=== PATIENT | female | born 1940 | race African-American/Black ===

== ENCOUNTER 2019-06-30 20:40 | Inpatient (IN) | payer MEDICARE, SELFPAY ==
--- NOTE | ~2019-06-30 | XR_ITS ---
EXAMINATION: XR abdomen/kub 1V DATE: 07/07/2019 05:46 INDICATION: Barium check TECHNIQUE: A supine view of the abdomen on 2 radiographs was obtained. COMPARISON: 07/06/2019 FINDINGS: There is still a significant quantity of barium distributed throughout the length of the colon. Multi ple diverticula along the sigmoid colon. No dilated loops of gas-filled bowel to suggest obstruction. Calcified splenic granulomata. Phleboliths in the pelvis. Severe lumbar spondylosis. IMPRESSION: 1. Normal bowel gas pattern with minimal change in a still significant quantity of barium remaining t hroughout the colon. Reviewed, dictated and finalized at location A. ET INSPECTOR IMPRESSION: 1. Normal bowel gas pattern with minimal change in a still significant quantity of barium remaining throughout the colon.
--- NOTE | ~2019-06-30 | XR_ITS ---
SMALL BOWEL SERIES ONLY INDICATION: Occult GI bleed. Iron deficiency anemia. TECHNIQUE: Serial plain films and fluoroscopic spot films are performed following oral demonstration of thin barium. COMPARISON: None FINDINGS: There is a large amount of barium in the stomach which remains throughout the course of the examination. There is poor visualization of the small bowel, although there is no significant small bowel dilation. Transit time to the colon is less than 4 hours. IMPRESSION: 1: Limited study due to poor visualization of small bowel. No evidence for small bowel dilation to s uggest obstruction. There is delayed gastric emptying. Reviewed, dictated and finalized at location A. BEAM FITTER IMPRESSION: 1: Limited study due to poor visualization of small bowel. No evidence for sma ll bowel dilation to suggest obstruction. There is delayed gastric emptying.
--- NOTE | ~2019-06-30 | XR_ITS ---
XR abdomen NG/feed tube insert INDICATION: Evaluate NG tube position.] TECHNIQUE: Limited KUB perform for evaluating NG tube .] COMPARISON: 09/12/2006 FINDINGS: [NG tube tip in the distal esophagus above the diaphragm. Visualized bowel gas pattern is unremarkable. IMPRESSION: 1: [NG tube tip in the distal esophagus above the diaphragm. Recommend advancement.. Reviewed, dictated and finalized at location A. ATRIC SOCIAL WORKER IMPRESSION: 1: [NG tube tip in the distal esophagus above the diaphragm. Recommend advance ment..
--- NOTE | ~2019-06-30 | XR_ITS ---
EXAMINATION: XR abdomen/kub 1V DATE: 07/05/2019 10:13 INDICATION: Anemia. TECHNIQUE: A supine view of the abdomen was obtained. COMPARISON: Small bowel series 07/03/2019 FINDINGS: There are no dilated loops of bowel. There is contrast in the colon. There are scattered di verticula in the colon. IMPRESSION: 1. Nonobstructive bowel gas pattern. Reviewed, dictated and finalized at location B. INUING EDUCATION DIRECTOR
--- NOTE | ~2019-06-30 | XR_ITS ---
EXAMINATION: XR abdomen/kub 1V DATE: 07/06/2019 14:15 INDICATION: Anemia. TECHNIQUE: A supine view of the abdomen on 2 radiographs was obtained. COMPARISON: Abdomen radiograph 07/05/2019 FINDINGS: There are no dilated loops of bowel. There is contrast in the colon. There are scattered di verticula in the sigmoid colon. IMPRESSION: 1. Nonobstructive bowel gas pattern. Reviewed, dictated and finalized at location B. MOBILE MECHANIC HELPER
--- NOTE | ~2019-06-30 | CT_ITS ---
EXAMINATION: CT chest wo con DATE: 07/04/2019 12:20 INDICATION: Iron deficiency anemia TECHNIQUE: Computed tomography (CT) of the chest was performed without intravenous contrast. The dose -length product was 191.47 mGy-cm. Automated exposure control and iterative reconstruction technique were employed. COMPARISON: Chest x-ray dated 08/26/2011 FINDINGS: There is an enlarged thyroid gland which extends into the superior mediastinum. There are d ensely calcified mediastinal lymph nodes, consistent with chronic granulomatous disease. There is ath erosclerosis of the aorta and coronary arteries. Cardiomegaly. No significant pleural or pericardial effusion. There are calcified granulomas in the spleen. There is bibasilar dependent atelectasis. No endobronchial lesions. No suspicious pulmonary nodules or masses. No focal consolidation to suggest p neumonia. No pneumothorax. There is mild-moderate lower cervical and thoracic spondylosis. There is m ild left carotid atherosclerosis. IMPRESSION: 1. Thyroid goiter. Consider correlation with ultrasound. 2: Bibasilar dependent atelectasis. Reviewed, dictated and finalized at location A. COURSE PATROLLER
--- NOTE | ~2019-06-30 | XR_ITS ---
XR abdomen NG/feed tube recheck INDICATION: Evaluate NG tube position.] TECHNIQUE: Limited KUB perform for evaluating NG tube .] COMPARISON: 07/01/2019 FINDINGS: [NG tube tip in the stomach. Visualized bowel gas pattern is unremarkable. IMPRESSION: 1: [NG tube tip in the stomach. Reviewed, dictated and finalized at location A. NING AND DEVELOPMENT PROFESSIONAL
--- NOTE | 2019-06-30 20:45 | ECG_ITS ---
Measurements Intervals [place] Rate: 116 P: TX: 0 QRS: 13 QRSD: 87 T: -19 QT: 302 QTc: 421 Interpretive Statements SINUS OR ECTOPIC ATRIAL TACHYCARDIA NONSPECIFIC ST & T-WAVE ABNORMALITY- INF/LAT LEADS BASELINE ARTIFACT- I, II, III, AVR, AVL, AVF, V1-V6 ABNORMAL ECG Electronically Signed On 07-01-2019 7:09:17 STAMPING DIE MAKER by Gian Cherry D.O.
[2019-06-30 20:48] VITALS: BP 117/77; PULSE 117; RESP 20; TEMP 37.2; O2SAT 100
--- NOTE | 2019-06-30 20:51 | ED.GENADULT ---
HPI - General Adult General Chief complaint: Unspecified Stated complaint: DIZZY Time Seen by Provider: 06/30/19 20:47 Source: patient, family and RN notes reviewed Mode of arrival: EMS Limitations: no limitations History of Present Illness HPI narrative: Pt is an 79 y/o female who presents to the ED, via EMS from [facility], with c/o dizziness. Time of onset is unknown. Per EMS, EMS was called for an unresponsive episode that lasted for approximately 14 minutes. EMS reports she became alert after a sternal rub. Pt is normally A&O x2 at baseline. Per pt, pt describes her dizziness as the room is spinning. Pt notes that she has had a similar episode of her dizziness in the past. Her dizziness is worsened when she moves her head. Pt denies taking any medications for her dizziness. Per family, pt has not ambulated since 2015. Pt reports a fast heart rate, chest congestion, urinary frequency that began a couple of weeks ago, and lower ABD soreness, but denies nausea, ringing in her ears, and dysuria. MD complaint: Dizziness Onset (ago): unknown Exacerbating factors: movement (of her head) Associated symptoms: other (a fast heart rate, chest congestion, urinary frequency that began a couple of weeks ago, lower ABD soreness) Related Data Home Medications Medication Instructions Recorded Confirmed acetaminophen [Tylenol] 325 mg PO Q4-6H PRN 07/01/19 07/01/19 aspirin [Star Chewable Aspirin] 81 mg PO DAILY 07/01/19 07/01/19 docusate sodium [Colace] 100 mg PO DAILY 07/01/19 07/01/19 donepezil [Aricept] 10 mg PO HS 07/01/19 07/01/19 gabapentin 100 mg PO HS 07/01/19 07/01/19 isosorbide mononitrate 30 mg PO DAILY 07/01/19 07/01/19 pwsvsqbyzfcs-whvq-wgtpe acid 1 tablet PO QAM 07/01/19 07/01/19 [Daily Multivitamin with Iron] ranitidine HCl [Zantac] 150 mg PO HS 07/01/19 07/01/19 sotalol 80 mg PO BID 07/01/19 07/01/19 sulfamethoxazole-trimethoprim 1 tablet PO DAILY 07/01/19 07/01/19 [Bactrim DS] Allergies Allergy/AdvReac Type Severity Reaction Status Date / Time Penicillins Allergy Intermediate Verified 06/08/12 12:11 ciprofloxacin Allergy Verified 06/08/12 12:11 Review of Systems Review of Systems: All systems reviewed & are unremarkable except as noted in HPI and below ENT: Reports other (ringing in her ears) Cardiovascular: Cardiovascular: Reports rapid heart rate Respiratory: Respiratory: Reports chest congestion Gastrointestinal: Gastrointestinal: Reports abdominal pain (lower, soreness) and Denies nausea Genitourinary: Genitourinary: Reports frequent urination (that began a couple of weeks ago) and Denies dysuria Neurologic: Reports dizziness PMF Past Medical History Medical History A-fib (Acute) Angina at rest (Acute) Anxiety (Acute) Arthritis (Acute) Cataracts, bilateral (Acute) Dementia (Acute) Depression (Acute) Diabetes (Acute) Diverticulosis (Acute) Endometriosis (Acute) Esophageal stricture (Acute) Falls (Acute) Fibroids (Acute) GERD (gastroesophageal reflux disease) (Acute) HTN (hypertension) (Acute) Hyperlipidemia (Acute) Infertility (Acute) Irregular heart beat (Acute) Mitral valve prolapse (Acute) Panic disorder (Acute) Parkinson's disease (Acute) Pneumonia (Acute) Renal disease (Acute) Thyroid lump (Acute) UTI (urinary tract infection) (Acute) Wrist fracture, left (Acute) Surgical History Surgical History History of hysterectomy (Acute) History of nephrectomy (Acute) History of spinal surgery (Acute) History of tubal ligation (Acute) Hx of appendectomy (Acute) Hx of cardiac catheterization (Acute) Hx of tonsillectomy (Acute) Family History Family History (Updated 07/01/19 @ 02:33 by Saba Langford RN) Sibling Hypertension Diabetes mellitus Mother Hypertension Social History Social History (Updated 06/30/19 @ 21:37 by Mayra Pacheco) Smoking status: Never
[2019-06-30 21:19] LABS: Basophils Percent Auto 0.3 % (0.2-1.2); Eosinophils Absolute Auto 0.2 K/mm3 (0-0.3); Eosinophils Percent Auto 1.9 % (0-4.4); Hematocrit 23.3 % (37.0-47.0); Hemoglobin 7.2 g/dL (12.0-15.0); Immature Granulocyte Absolute 0.04 K/mm3 (0.00-0.031); Immature Granulocyte Percent A 0.5 % (0-0.5); Lymphocytes Absolute Auto 1.35 K/mm3 (0.9-3.2); Lymphocytes Percent Auto 15.4 % (18.3-44.2); Mean Corpuscular HGB Conc 30.9 g/dl (32-36); Mean Corpuscular Hemoglobin 26.2 pg (26-34); Mean Corpuscular Volume 84.7 fl (80-100); Mean Platelet Volume 9.6 fl (7.4-10.4); Monocytes Percent Auto 11.4 % (2.6-8.5); Neutrophils Absolute Auto 6.2 K/mm3 (1.3-6.7); Neutrophils Percent Auto 70.5 % (45.5-73.1); Platelet Count Result 344 k/mm3 (150-375); Red Blood Count 2.75 M/mm3 (4.2-5.4); Red Cell Distribution Width 15.1 % (11.5-14.5); White Blood Count 8.8 K/mm3 (4.5-10.0)
[2019-06-30] MEDS: SODIUM CHLORIDE 0.9% IV 1,000 ML 999 ML IV CONT (21:23)
[2019-06-30] MEDS: MECLIZINE HCL 25 MG TABLET PO (21:23)
[2019-06-30 21:29] LABS: Blood Urea Nitrogen 15 mg/dL (7-17); Calcium 8.7 mg/dL (8.4-10.2); Carbon Dioxide 26 mmol/L (22-30); Chloride 106 mmol/L (98-107); Estimated Glomerular Filt Rate 44; Glucose 150 mg/dL (65-105); Sodium 139 mmol/L (137-145)
[2019-06-30 22:11] LABS: Add Urine Microscopic? YES; Appearance Urine Clear (Clear); Bacteria Urine Trace /hpf; Bilirubin Urine Negative (Negative); Blood Urine Negative (Negative); Color Urine Yellow (Yellow); Glucose Urine UA Negative (Negative); Ketones Urine Negative (Negative); Leukocyte Esterase Ur Trace LEU/UL (Negative); Mucus Urine Rare /lpf; Nitrate Urine Positive (Negative); Protein Urine Negative (Negative); RBC Urine 0-2 /hpf (0-2); Specific Grav Ur 1.014 (1.001-1.035); Squamous Epithelial Cell Urine Few /hpf (Few); Urobilinogen Urine Negative mg/dL (<2.0); WBC Urine 0-3
[2019-06-30 23:30] VITALS: BP 131/84; PULSE 115; RESP 15; O2SAT 100
[2019-07-01 01:15] VITALS: BP 144/65; PULSE 119; RESP 15; O2SAT 100
[2019-07-01] MEDS: PANTOPRAZOLE SODIUM IV 40 MG VIAL IV PUSH (01:45)
[2019-07-01 02:03] VITALS: BP 131/52; PULSE 117; RESP 14; O2SAT 100
[2019-07-01 02:15] VITALS: BP 119/95; PULSE 118; RESP 16; O2SAT 98
--- NOTE | 2019-07-01 02:30 | PC.NURSE ---
This patient, Adelaida Knox, was admitted to Medical Room 246-. Patient/family oriented to hospital policies and general routines including ID bracelet, bed and alarms, visiting hours, pain management, procedures, bathroom and other care routines, personal items, smoking policy, room service/diet, and visiting hours. Valuables list has been completed. Information on how to activate the Rapid Response Team has been discussed. Patient/Family are encouraged to report perceived risks to care and to ask questions if they do not understand what they are told or what they should do.
[2019-07-01 03:01] LABS: Hemoglobin 7.6 g/dL (12.0-15.0)
[2019-07-01 06:00] VITALS: BP 138/78; PULSE 77; RESP 20; TEMP 36.3; O2SAT 100; BMI 29.7
[2019-07-01 07:23] LABS: Hematocrit 23.8 % (37.0-47.0); Hemoglobin 7.4 g/dL (12.0-15.0)
[2019-07-01 09:04] LABS: Iron < 10 ug/dL (37-170)
[2019-07-01 09:44] LABS: Percent Iron Saturation < 4 % (20-50)
[2019-07-01 09:59] LABS: Folic Acid 9.3 ng/mL (2.76->20)
[2019-07-01] MEDS: SILVERGEL (ELTA) 45 ML 1 APPLIC TOPICAL (12:27)
--- NOTE | 2019-07-01 12:29 | WPDGICN ---
Assessment and Plan Assessment and plan (1) Anemia due to blood loss: Code(s): D50.0 - Iron deficiency anemia secondary to blood loss (chronic) Status: Acute Assessment and Plan: Decline in hemoglobin and anemia appear to account for mental status changes. GI bleeding is suspected. Occult blood in stool identified in the emergency room. Plan to transfuse to stable hemoglobin. Proceed with GI endoscopy in the morning after preparation today. (2) Occult blood in stools: Code(s): R19.5 - Other fecal abnormalities Status: Acute (3) Dementia: Code(s): F03.90 - Unspecified dementia without behavioral disturbance Status: Acute (4) Diabetes: Code(s): E11.9 - Type 2 diabetes mellitus without complications Status: Acute (5) Parkinson's disease: Code(s): G20 - Parkinson's disease Status: Acute Consult date/time: 07/01/19 12:29 HPI: Adelaida Knox is a 79 year old female seen in evaluation at the request of the emergency room. Patient currently resident of [facility]. She became poorly responsive and for this reason sent to the emergency room. She was found to be significantly anemic with occult blood in stool. Patient is unable to give any additional useful history. She denies any abdominal pain. Her past medical history is significant for Parkinson's disease and dementia old records reflect baseline hemoglobin approximately 11.in the emergency room hemoglobin was 7.4. With heme-positive stool. Review of Systems Review of Systems: ROS unobtainable: unobtainable due to mental condition PMFSH Past Medical History Medical History A-fib (Acute) Angina at rest (Acute) Anxiety (Acute) Arthritis (Acute) Cataracts, bilateral (Acute) Dementia (Acute) Depression (Acute) Diabetes (Acute) Diverticulosis (Acute) Endometriosis (Acute) Esophageal stricture (Acute) Falls (Acute) Fibroids (Acute) GERD (gastroesophageal reflux disease) (Acute) HTN (hypertension) (Acute) Hyperlipidemia (Acute) Infertility (Acute) Irregular heart beat (Acute) Mitral valve prolapse (Acute) Panic disorder (Acute) Parkinson's disease (Acute) Pneumonia (Acute) Renal disease (Acute) Thyroid lump (Acute) UTI (urinary tract infection) (Acute) Wrist fracture, left (Acute) Surgical History Surgical History History of hysterectomy (Acute) History of nephrectomy (Acute) History of spinal surgery (Acute) History of tubal ligation (Acute) Hx of appendectomy (Acute) Hx of cardiac catheterization (Acute) Hx of tonsillectomy (Acute) Family History Family History (Updated 07/01/19 @ 02:33 by Saba Langford RN) Sibling Hypertension Diabetes mellitus Mother Hypertension Social History Social History (Updated 06/30/19 @ 21:37 by Mayra Pacheco) Smoking status: Never smoker Second hand tobacco smoke exposure: No Alcohol intake: never Substance use: never Substance use type: does not use Gender identity (if verbalized by the patient): Female Spiritual care concerns: No Agree to blood products: Yes Meds Home Medications and Allergies Home Medications Medication Instructions Recorded Confirmed Type acetaminophen [Tylenol] 325 mg PO Q4-6H PRN 07/01/19 07/01/19 History aspirin [Star Chewable Aspirin] 81 mg PO DAILY 07/01/19 07/01/19 History docusate sodium [Colace] 100 mg PO DAILY 07/01/19 07/01/19 History donepezil [Aricept] 10 mg PO HS 07/01/19 07/01/19 History gabapentin 100 mg PO HS 07/01/19 07/01/19 History isosorbide mononitrate 30 mg PO DAILY 07/01/19 07/01/19 History sdmfqkcqwtpj-nbso-qtyzh acid 1 tablet PO QAM 07/01/19 07/01/19 History [Daily Multivitamin with Iron] ranitidine HCl [Zantac] 150 mg PO HS 07/01/19 07/01/19 History sotalol 80 mg PO BID 07/01/19 07/01/19 History sulfamethoxazole-trimethoprim 1 tablet PO DAILY 07/01
[2019-07-01] MEDS: PEG (High)/E-LYTE SOLN 4,000 ML BTL 4000 ML PO (12:38)
[2019-07-01 12:58] VITALS: BMI 29.7
--- NOTE | 2019-07-01 13:36 | PM.IMHP ---
H&P: HPI History of Present Illness Chief complaint: OCCULT GI BLEED,ANEMIA,SACRAL DECUBITUS ULCER Narrative: Adelaida Knox is a 79 year old female a resident of [place] was found unresponive and patient had been complaining of being dizzy and room is moving, sent to the ER, patient is poor historian and unable to provide detail history or review of symptoms, patient family is present in the room, patient is found to have anemia and her stool hemmocult is positive, patient was seen by Dr. Olivera and recommended EGD to further evaluate and iron profile showed iron deficiency anemia, started the patient on venofer. Most of the history is recoded from electronic charts. Review of Systems Review of Systems: Narrative: Patient is elderly frail very poor historian unable to provide detailed ROS All systems reviewed & are unremarkable except as noted in HPI and below PMFSH Past Medical History Medical History A-fib (Acute) Angina at rest (Acute) Anxiety (Acute) Arthritis (Acute) Cataracts, bilateral (Acute) Dementia (Acute) Depression (Acute) Diabetes (Acute) Diverticulosis (Acute) Endometriosis (Acute) Esophageal stricture (Acute) Falls (Acute) Fibroids (Acute) GERD (gastroesophageal reflux disease) (Acute) HTN (hypertension) (Acute) Hyperlipidemia (Acute) Infertility (Acute) Irregular heart beat (Acute) Mitral valve prolapse (Acute) Panic disorder (Acute) Parkinson's disease (Acute) Pneumonia (Acute) Renal disease (Acute) Thyroid lump (Acute) UTI (urinary tract infection) (Acute) Wrist fracture, left (Acute) Surgical History Surgical History History of hysterectomy (Acute) History of nephrectomy (Acute) History of spinal surgery (Acute) History of tubal ligation (Acute) Hx of appendectomy (Acute) Hx of cardiac catheterization (Acute) Hx of tonsillectomy (Acute) Family History Family History (Updated 07/01/19 @ 02:33 by Saba Langford RN) Sibling Hypertension Diabetes mellitus Mother Hypertension Social History Social History (Updated 06/30/19 @ 21:37 by Mayra Pacheco) Smoking status: Never smoker Second hand tobacco smoke exposure: No Alcohol intake: never Substance use: never Substance use type: does not use Gender identity (if verbalized by the patient): Female Spiritual care concerns: No Agree to blood products: Yes Meds Home Medications and Allergies Home Medications Medication Instructions Recorded Confirmed Type acetaminophen [Tylenol] 325 mg PO Q4-6H PRN 07/01/19 07/01/19 History aspirin [Star Chewable Aspirin] 81 mg PO DAILY 07/01/19 07/01/19 History docusate sodium [Colace] 100 mg PO DAILY 07/01/19 07/01/19 History donepezil [Aricept] 10 mg PO HS 07/01/19 07/01/19 History gabapentin 100 mg PO HS 07/01/19 07/01/19 History isosorbide mononitrate 30 mg PO DAILY 07/01/19 07/01/19 History hnaunborssoc-figa-fgzrn acid 1 tablet PO QAM 07/01/19 07/01/19 History [Daily Multivitamin with Iron] ranitidine HCl [Zantac] 150 mg PO HS 07/01/19 07/01/19 History sotalol 80 mg PO BID 07/01/19 07/01/19 History sulfamethoxazole-trimethoprim 1 tablet PO DAILY 07/01/19 07/01/19 History [Bactrim DS] Allergies Allergy/AdvReac Type Severity Reaction Status Date / Time Penicillins Allergy Intermediate Verified 06/08/12 12:11 ciprofloxacin Allergy Verified 06/08/12 12:11 Vital Signs Vital Signs - 24 hr 06/30/19 20:48 06/30/19 23:30 07/01/19 01:15 Temperature 98.9 F Pulse Rate 117 H 115 H 119 H Respiratory Rate 20 15 15 Blood Pressure 117/77 131/84 144/65 H Pulse Oximetry 100 100 100 07/01/19 02:03 07/01/19 02:15 07/01/19 06:00 Temperature 97.3 F L Pulse Rate 117 H 118 H 77 Respiratory Rate 14 16 20 Blood Pressure 131/52 L 119/95 H 138/78 Pulse Oximetry 100 98 100 Exam Narrative: Exam Narrative: Patient is elderly frail Const: General: comfort
[2019-07-01 13:58] LABS: Hematocrit 25.2 % (37.0-47.0); Hemoglobin 7.8 g/dL (12.0-15.0)
[2019-07-01 14:00] VITALS: BP 135/79; PULSE 110; RESP 16; TEMP 36.6; O2SAT 94
[2019-07-01 19:45] LABS: Hematocrit 25.3 % (37.0-47.0); Hemoglobin 7.9 g/dL (12.0-15.0)
[2019-07-01 22:00] VITALS: BP 154/90; PULSE 118; RESP 21; TEMP 36.1; O2SAT 100
[2019-07-02] VITALS (10 sets, daily range): BP systolic 99–154; BP diastolic 9–90; PULSE 82–118; RESP 14–21; TEMP 36.1–36.8; O2SAT 95–100
[2019-07-02 06:36] LABS: Hematocrit 29.9 % (37.0-47.0); Hemoglobin 9.2 g/dL (12.0-15.0); Mean Corpuscular HGB Conc 30.8 g/dl (32-36); Mean Corpuscular Hemoglobin 26.1 pg (26-34); Mean Corpuscular Volume 84.9 fl (80-100); Mean Platelet Volume 9.2 fl (7.4-10.4); Platelet Count Result 351 k/mm3 (150-375); Red Blood Count 3.52 M/mm3 (4.2-5.4); Red Cell Distribution Width 14.9 % (11.5-14.5); White Blood Count 9.4 K/mm3 (4.5-10.0)
--- NOTE | 2019-07-02 12:50 | PC.NURSE ---
Patient sent to GI lab via stretcher
[2019-07-02] MEDS: LACTATED RINGERS 1,000 ML 150 ML IV CONT (13:24)
--- NOTE | 2019-07-02 13:47 | WPDANESEPPF ---
Anes - Initial Pre Proc Eval Procedure: Operation Date: 07/02/19 14:00 Proposed Procedures p Esophagogastroduodenoscopy & Colonoscopy - Keith Olivera MD Date/Time: 07/02/19 13:47 Surgeon: Jermaine Lozano MD Pre Op Diagnosis: OCCULT GI BLEED,ANEMIA,SACRAL DECUBITUS ULCER Patient Data Age: 79 Gender: F Height: 5 ft Weight: 69 kg Last Vital Signs Temp 98.1 F 07/02/19 13:18 Pulse 85 07/02/19 13:18 Resp 20 07/02/19 13:18 BP 133/77 07/02/19 13:18 Pulse Ox 99 07/02/19 13:18 Allergies Allergy/AdvReac Type Severity Reaction Status Date / Time Penicillins Allergy Intermediate Verified 06/08/12 12:11 ciprofloxacin Allergy Verified 06/08/12 12:11 Home Medications Medication Instructions Recorded Confirmed Type acetaminophen [Tylenol] 325 mg PO Q4-6H PRN 07/01/19 07/01/19 History aspirin [Star Chewable Aspirin] 81 mg PO DAILY 07/01/19 07/01/19 History docusate sodium [Colace] 100 mg PO DAILY 07/01/19 07/01/19 History donepezil [Aricept] 10 mg PO HS 07/01/19 07/01/19 History gabapentin 100 mg PO HS 07/01/19 07/01/19 History isosorbide mononitrate 30 mg PO DAILY 07/01/19 07/01/19 History vcsjdzdfkbky-eybd-htiyp acid 1 tablet PO QAM 07/01/19 07/01/19 History [Daily Multivitamin with Iron] ranitidine HCl [Zantac] 150 mg PO HS 07/01/19 07/01/19 History sotalol 80 mg PO BID 07/01/19 07/01/19 History sulfamethoxazole-trimethoprim 1 tablet PO DAILY 07/01/19 07/01/19 History [Bactrim DS] Laboratory Tests 07/01/19 07/01/19 07/02/19 13:45 19:35 06:21 WBC 9.4 K/mm3 K/mm3 (4.5-10.0) RBC 3.52 M/mm3 L M/mm3 (4.2-5.4) Hgb 7.8 g/dL L g/dL 7.9 g/dL L g/dL 9.2 g/dL L g/dL (12.0-15.0) (12.0-15.0) (12.0-15.0) Hct 25.2 % L % 25.3 % L % 29.9 % L % (37.0-47.0) (37.0-47.0) (37.0-47.0) MCV 84.9 fl fl (80-100) MCH 26.1 pg pg (26-34) MCHC 30.8 g/dl L g/dl (32-36) RDW 14.9 % H % (11.5-14.5) Plt Count 351 k/mm3 k/mm3 (150-375) MPV 9.2 fl fl (7.4-10.4) Patient hx anesthesia problems: none Family hx anesthesia problems: [facility] Past Medical History Medical History A-fib (Acute) Angina at rest (Acute) Anxiety (Acute) Arthritis (Acute) Cataracts, bilateral (Acute) Dementia (Acute) Depression (Acute) Diabetes (Acute) Diverticulosis (Acute) Endometriosis (Acute) Esophageal stricture (Acute) Falls (Acute) Fibroids (Acute) GERD (gastroesophageal reflux disease) (Acute) HTN (hypertension) (Acute) Hyperlipidemia (Acute) Infertility (Acute) Irregular heart beat (Acute) Mitral valve prolapse (Acute) Panic disorder (Acute) Parkinson's disease (Acute) Pneumonia (Acute) Renal disease (Acute) Thyroid lump (Acute) UTI (urinary tract infection) (Acute) Wrist fracture, left (Acute) Surgical History Surgical History History of hysterectomy (Acute) History of nephrectomy (Acute) History of spinal surgery (Acute) History of tubal ligation (Acute) Hx of appendectomy (Acute) Hx of cardiac catheterization (Acute) Hx of tonsillectomy (Acute) Family History Family History (Updated 07/01/19 @ 02:33 by Saba Langford RN) Sibling Hypertension Diabetes mellitus Mother Hypertension Social History Social History (Updated 06/30/19 @ 21:37 by Mayra Pacheco) Smoking status: Never smoker Second hand tobacco smoke exposure: No Alcohol intake: never Substance use: never Substance use type: does not use Gender identity (if verbalized by the patient): Female Spiritual care concerns: No Agree to blood products: Yes Anes - Eval Final PreProcedure Day of Procedure 07/02/19 13:47 Patient weight: normal Heart: regular rate and rhythm Lungs: clear to auscultation Airway: Mallampati scale class III Neurological: alert and oriented Last oral intake: >/= 8 hours
--- NOTE | 2019-07-02 14:35 | PM.IMPN ---
Progress Note: A&P Assessment and Plan (1) Anemia due to blood loss: Code(s): D50.0 - Iron deficiency anemia secondary to blood loss (chronic) Status: Acute Assessment and Plan: Adelaida Knox is a 79 year old female a resident of [place] was found unresponive and patient had been complaining of being dizzy and room is moving, sent to the ER, patient is poor historian and unable to provide detail history or review of symptoms, patient family is present in the room, patient is found to have anemia and her stool hemmocult is positive, patient was seen by Dr. Olivera on 07/01 and recommended EGD and colonoscopy to further evaluate which is scheduled later today and her iron profile showed iron deficiency anemia, started the patient on venofer. will follow on her scopes and further recommendation to follow (2) Dementia: Code(s): F03.90 - Unspecified dementia without behavioral disturbance Status: Acute Assessment and Plan: Patient is at her baseline, (3) Diabetes: Code(s): E11.9 - Type 2 diabetes mellitus without complications Status: Acute Assessment and Plan: will continue home regiment and monitor (4) Parkinson's disease: Code(s): G20 - Parkinson's disease Status: Acute Assessment and Plan: patient is clinically stable, will monitor (5) Ulcer: Status: Acute Assessment and Plan: pateint wounds were present upon arrival to ER from [place], patient will be seen by wound team Subjective Interval history: Adelaida Knox is a 79 year old female a resident of [place] was found unresponive and patient had been complaining of being dizzy and room is moving, sent to the ER, patient is poor historian and unable to provide detail history or review of symptoms, patient family is present in the room, patient is found to have anemia and her stool hemmocult is positive, patient was seen by Dr. Olivera on 07/01 and recommended EGD and colonoscopy to further evaluate which is scheduled later today and her iron profile showed iron deficiency anemia, started the patient on venofer. will follow on her scopes and further recommendation to follow Review of Systems Review of Systems: All systems reviewed & are unremarkable except as noted in HPI and below Exam Narrative: Exam Narrative: Patient is elderly frail Const: General: comfortable and no acute distress Other: Patient is elderly frail HENMT: General nose exam: nares normal Mouth: Yes moist mucous membranes Other: Patient is elderly frail Eyes: General: appearance normal, both eyes and all related structures Neck: Neck: supple Resp: Effort & Inspection: normal respiratory effort Auscultation: clear to auscultation bilaterally Cardio: Rate: regular rate Rhythm: regular rhythm GI: Palpation (GI): Yes soft Auscultation: normal bowel sounds Extrem: General: normal to inspection Objective Data Vital Signs Vital Signs: Vital Signs - 24 hr 07/01/19 22:00 07/02/19 00:00 07/02/19 06:00 Temperature 97.0 F L 97.0 F L 98.3 F Pulse Rate 118 H 118 H 118 H Respiratory Rate 21 H 21 H 20 Blood Pressure 154/90 H 154/9 H 131/82 Pulse Oximetry 100 100 99 07/02/19 10:00 07/02/19 13:18 Temperature 98.0 F 98.1 F Pulse Rate 115 H 85 Respiratory Rate 16 20 Blood Pressure 129/67 133/77 Pulse Oximetry 98 99 Intake/Output Intake/Output: Intake & Output 06/29/19 06/30/19 07/01/19 07/02/19 23:59 23:59 23:59 23:59 Intake Total 1000 200 115 Balance 1000 200 115 Meds/Results Medications: Active Medications Generic Name Dose Route Start Last Admin Trade Name Freq PRN Reason Stop Dose Admin Acetaminophen 650 mg 07/01/19 01:23 Tylenol Tablet PO Q4H PRN Mild Pain (1-3) or Fever Lactated Ringer's 1,000 mls @ 150 mls/hr 07/02/19 13:05 07/02/19 13:24 Lr - Lactated Ringers Iv IV CONT 150 mls/hr .Q6H40M CASSIE Administration Ondansetron HCl 4 mg 07/01/19 01:23 Zofran
--- NOTE | 2019-07-02 14:42 | PM.IMPN ---
Objective Data Vital Signs Vital Signs: Vital Signs - 24 hr 07/01/19 22:00 07/02/19 00:00 07/02/19 06:00 Temperature 97.0 F L 97.0 F L 98.3 F Pulse Rate 118 H 118 H 118 H Respiratory Rate 21 H 21 H 20 Blood Pressure 154/90 H 154/9 H 131/82 Pulse Oximetry 100 100 99 07/02/19 10:00 07/02/19 13:18 Temperature 98.0 F 98.1 F Pulse Rate 115 H 85 Respiratory Rate 16 20 Blood Pressure 129/67 133/77 Pulse Oximetry 98 99 Intake/Output Intake/Output: Intake & Output 06/29/19 06/30/19 07/01/19 07/02/19 23:59 23:59 23:59 23:59 Intake Total 1000 200 115 Balance 1000 200 115 Meds/Results Medications: Active Medications Generic Name Dose Route Start Last Admin Trade Name Freq PRN Reason Stop Dose Admin Acetaminophen 650 mg 07/01/19 01:23 Tylenol Tablet PO Q4H PRN Mild Pain (1-3) or Fever Lactated Ringer's 1,000 mls @ 150 mls/hr 07/02/19 13:05 07/02/19 13:24 Lr - Lactated Ringers Iv IV CONT 150 mls/hr .Q6H40M CASSIE Administration Ondansetron HCl 4 mg 07/01/19 01:23 Zofran Inj IV PUSH Q4H PRN Nausea Silver Nitrate 1 applic 07/01/19 09:00 07/01/19 12:27 Silvergel TOPICAL 1 applic Q72HR CASSIE Administration Radiology Results: ITS Impressions Abdomen X-Ray 07/01/19 18:35 IMPRESSION: 1: [NG tube tip in the stomach. Labs Labs: Laboratory Results - last 24 hr 07/01/19 07/02/19 19:35 06:21 WBC 9.4 RBC 3.52 L Hgb 7.9 L 9.2 L Hct 25.3 L 29.9 L MCV 84.9 MCH 26.1 MCHC 30.8 L RDW 14.9 H Plt Count 351 MPV 9.2 Quality VTE Prophylaxis VTE prophylaxis: mechanical ordered
[2019-07-02] MEDS: SIMETHICONE ORAL SUSPENSION 20 MG/0.3 ML 30 ML BOTTLE 0.6 ML PO (14:54)
--- NOTE | 2019-07-02 15:06 | SUR.PHASEII ---
PT ALTERNATES BETWEEN A FIB AND NSR WITH HR- 80'S-110 CURRENTLY. A FIB AND NSR NOTED DURING INTEROP ALSO.
--- NOTE | 2019-07-02 15:30 | PC.NURSE ---
Patient returned from GI lab via stretcher with staff.
[2019-07-02] MEDS: SOTALOL HCL 80 MG TABLET PO (21:15)
[2019-07-02] MEDS: GABAPENTIN 100 MG CAPSULE PO (21:15)
[2019-07-02] MEDS: DONEPEZIL HCL 10 MG TABLET PO (21:15)
[2019-07-02] MEDS: FAMOTIDINE 20 MG TABLET PO (21:15)
[2019-07-03] VITALS (9 sets, daily range): BP systolic 109–167; BP diastolic 58–97; PULSE 76–122; RESP 16–18; TEMP 36.1–37.3; O2SAT 97–100
[2019-07-03] MEDS: SILVERGEL (ELTA) 45 ML 1 APPLIC TOPICAL (05:37)
[2019-07-03 06:20] LABS: Hematocrit 26.1 % (37.0-47.0); Hemoglobin 7.9 g/dL (12.0-15.0); Mean Corpuscular HGB Conc 30.3 g/dl (32-36); Mean Corpuscular Hemoglobin 25.3 pg (26-34); Mean Corpuscular Volume 83.7 fl (80-100); Mean Platelet Volume 9.3 fl (7.4-10.4); Platelet Count Result 362 k/mm3 (150-375); Red Blood Count 3.12 M/mm3 (4.2-5.4); Red Cell Distribution Width 14.7 % (11.5-14.5); White Blood Count 8.1 K/mm3 (4.5-10.0)
[2019-07-03] MEDS: ISOSORBIDE MONONITRATE 30 MG TAB.ER.24H PO (08:10)
[2019-07-03] MEDS: ASPIRIN 81 MG CHEWABLE TABLET PO (08:11)
[2019-07-03] MEDS: MULTIVITAMINS /C LUTEIN (CENTRUM SILVER) TABLET *BKC 1 TAB PO (08:11)
[2019-07-03] MEDS: SOTALOL HCL 80 MG TABLET PO ×2 (08:11→20:23)
[2019-07-03] MEDS: DOCUSATE SODIUM 100 MG CAPSULE PO (08:11)
--- NOTE | 2019-07-03 09:29 | WPDGIPROGNO ---
Progress Note: A&P Assessment and Plan (1) Decubitus ulcer: Code(s): L89.90 - Pressure ulcer of unspecified site, unspecified stage Status: Acute Assessment and Plan: possibly this contributes to her anemia (2) Occult blood in stools: Code(s): R19.5 - Other fecal abnormalities Status: Acute Assessment and Plan: gi endoscopy reveals no significant lesions, occult blood in stool could be from hemorrhoids?? (3) Diabetes: Code(s): E11.9 - Type 2 diabetes mellitus without complications Status: Acute (4) Parkinson's disease: Code(s): G20 - Parkinson's disease Status: Acute (5) ELSA (iron deficiency anemia): Code(s): D50.9 - Iron deficiency anemia, unspecified Status: Acute Assessment and Plan: EGD and colonoscopy with no significant lesions, consider non GI etiology for anemia, SBFT to complete gi workup advised Subjective Interval history: no bleeding reported, tolerated diet, hgb stable, unremarkable GI endoscopies to date Exam Narrative: Exam Narrative: pt alert, at baseline, tolerated diet, no bleeding, no abd pain, Objective Data Vital Signs Vital Signs: Vital Signs - 24 hr 07/02/19 10:00 07/02/19 13:18 07/02/19 14:00 Temperature 36.7 C 36.7 C 36.7 C Pulse Rate 115 H 85 82 Respiratory Rate 16 20 14 Blood Pressure 129/67 133/77 128/73 Pulse Oximetry 98 99 100 07/02/19 14:55 07/02/19 15:05 07/02/19 15:15 Temperature Pulse Rate 90 90 118 H Respiratory Rate 14 14 14 Blood Pressure 101/66 113/62 99/73 L Pulse Oximetry 100 100 95 07/02/19 18:00 07/02/19 22:00 07/03/19 02:00 Temperature 36.6 C 36.4 C 36.2 C L Pulse Rate 118 H 118 H 114 H Respiratory Rate 14 18 16 Blood Pressure 132/76 139/90 145/89 H Pulse Oximetry 99 99 97 07/03/19 06:00 Temperature 37.3 C Pulse Rate 84 Respiratory Rate 18 Blood Pressure 167/97 H Pulse Oximetry 98 Intake/Output Intake/Output: Intake & Output 11/13/19 11/14/19 11/15/19 11/16/19 23:59 23:59 23:59 23:59 Intake Total 1000 200 515 Balance 1000 200 515 Meds/Results Medications: Active Medications Generic Name Dose Route Start Last Admin Trade Name Rafael PRN Reason Stop Dose Admin Acetaminophen 650 mg 07/01/19 01:23 Tylenol Tablet PO Q4H PRN Mild Pain (1-3) or Fever Aspirin 81 mg 07/03/19 09:00 07/03/19 08:11 Aspirin Chewable PO 81 mg DAILY CASSIE Administration Docusate Sodium 100 mg 07/03/19 09:00 07/03/19 08:11 Colace Cap PO 100 mg DAILY CASSIE Administration Donepezil HCl 10 mg 07/02/19 21:00 07/02/19 21:15 Aricept PO 10 mg HS CASSIE Administration Famotidine 20 mg 07/02/19 21:00 07/02/19 21:15 Pepcid PO 08/01/19 21:01 20 mg HS CASSIE Administration Gabapentin 100 mg 07/02/19 21:00 07/02/19 21:15 Neurontin PO 100 mg HS CASSIE Administration Isosorbide Mononitrate 30 mg 07/03/19 09:00 07/03/19 08:10 Imdur PO 30 mg DAILY CASSIE Administration Multivitamins/Minerals 1 tab 07/03/19 09:00 07/03/19 08:11 Centrum Silver PO 1 tab QAM CASSIE Administration Ondansetron HCl 4 mg 07/01/19 01:23 Zofran Inj IV PUSH Q4H PRN Nausea Silver Nitrate 1 applic 07/01/19 09:00 07/03/19 05:37 Silvergel TOPICAL 1 applic Q72HR CASSIE Administration Simethicone 0.6 ml 07/02/19 14:54 07/02/19 14:54 Mylicon Infants Drops PO 0.6 ml ONCE PRN Administration Gas Discomfort Sotalol HCl 80 mg 07/02/19 21:00 07/03/19 08:11 Betapace PO 80 mg Q12HR CASSIE Administration Trimethoprim/Sulfamethoxazole 1 tab 07/03/19 09:00 07/03/19 08:11 Septra Ds PO 1 tab DAILY CASSIE Administration Radiology Results: ITS Impressions Abdomen X-Ray 07/01/19 18:35 IMPRESSION: 1: [NG tube tip in the stomach. Labs Labs: Laboratory Results - last 24 hr 07/03/19 05:51 WBC 8.1 RBC 3.12 L Hgb 7.9 L Hct 26.1 L MCV
--- NOTE | 2019-07-03 11:17 | PM.IMPN ---
Progress Note: A&P Assessment and Plan (1) Anemia due to blood loss: Code(s): D50.0 - Iron deficiency anemia secondary to blood loss (chronic) Status: Acute Assessment and Plan: Adelaida Knox is a 79 year old female a resident of [place] was found unresponsive and patient had been complaining of being dizzy and room is moving, sent to the ER, patient is poor historian and unable to provide detail history or review of symptoms, patient family is present in the room, patient is found to have anemia and her stool hemmocult is positive, patient was seen by Dr. Olivera on 07/01,per previous notes, in patient EGD and colonscopy are both negative, SBFT advised as per GI for further investigation of iron deficiency anemia. pt treated with venofer during admission, hb improved to 7.i will order CT abdo and pelvis for saumya and SBFT soon. (2) Dementia: Code(s): F03.90 - Unspecified dementia without behavioral disturbance Status: Acute Assessment and Plan: Patient is at her baseline, poor historian (3) Diabetes: Code(s): E11.9 - Type 2 diabetes mellitus without complications Status: Acute Assessment and Plan: Will continue home regiment and monitor, started on diet, AC and HS (4) Parkinson's disease: Code(s): G20 - Parkinson's disease Status: Acute Assessment and Plan: Patient is clinically stable, will monitor (5) Ulcer: Status: Acute Assessment and Plan: Patient wounds were present upon arrival to ER from [place], patient will be seen by wound team, wound on tail bone Subjective Interval history: Adelaida Knox is a 79 year old female a resident of [place] was found unresponive and patient had been complaining of being dizzy and room is moving, sent to the ER, patient is poor historian and unable to provide detail history or review of symptoms, patient family is present in the room, patient is found to have anemia and her stool hemmocult is positive, patient was seen by Dr. Olivera on 07/01,per previous notes, in patient EGD and colonscopy are both negative, SBFT advised as per GI for further investigation of iron deficiency anemia. pt treated with venofer during admission, hb improved to 7. Review of Systems Review of Systems: All systems reviewed & are unremarkable except as noted in HPI and below Exam Narrative: Exam Narrative: Patient is elderly frail, poor historian, history of dementia Const: General: comfortable and no acute distress Other: Patient is elderly frail HENMT: General nose exam: nares normal Mouth: Yes moist mucous membranes Other: Patient is elderly frail Eyes: General: appearance normal, both eyes and all related structures Neck: Neck: supple Resp: Effort & Inspection: normal respiratory effort Auscultation: clear to auscultation bilaterally Cardio: Rate: regular rate Rhythm: regular rhythm GI: Palpation (GI): Yes soft Auscultation: normal bowel sounds Extrem: General: normal to inspection Objective Data Vital Signs Vital Signs: Vital Signs - 24 hr 07/02/19 13:18 07/02/19 14:00 07/02/19 14:55 Temperature 36.7 C 36.7 C Pulse Rate 85 82 90 Respiratory Rate 20 14 14 Blood Pressure 133/77 128/73 101/66 Pulse Oximetry 99 100 100 07/02/19 15:05 07/02/19 15:15 07/02/19 18:00 Temperature 36.6 C Pulse Rate 90 118 H 118 H Respiratory Rate 14 14 14 Blood Pressure 113/62 99/73 L 132/76 Pulse Oximetry 100 95 99 07/02/19 22:00 07/03/19 02:00 07/03/19 06:00 Temperature 36.4 C 36.2 C L 37.3 C Pulse Rate 118 H 114 H 84 Respiratory Rate 18 16 18 Blood Pressure 139/90 145/89 H 167/97 H Pulse Oximetry 99 97 98 Intake/Output Intake/Output: Intake & Output 06/30/19 07/01/19 07/02/19 07/03/19 23:59 23:59 23:59 23:59 Intake Total 1000 200 515 240 Balance 1000 200 515 240 Meds/Results Medications: Active Medications Generic Name Dose Route Start Last Admin Trade Name Freq PRN Reason Stop Dose A
[2019-07-03 14:23] LABS: Estimated CRCL calculation 25 ml/min; Estimated Glomerular Filt Rate 44
[2019-07-03] MEDS: DONEPEZIL HCL 10 MG TABLET PO (20:23)
[2019-07-03] MEDS: FAMOTIDINE 20 MG TABLET PO (20:23)
[2019-07-03] MEDS: GABAPENTIN 100 MG CAPSULE PO (20:23)
[2019-07-04] MEDS: ACETAMINOPHEN 325 MG TABLET 650 MG PO (04:38)
[2019-07-04 06:00] VITALS: BP 115/82; PULSE 121; RESP 18; TEMP 36.1; O2SAT 97
[2019-07-04 06:13] LABS: Hemoglobin 7.4 g/dL (12.0-15.0); Mean Corpuscular HGB Conc 30.8 g/dl (32-36); Mean Corpuscular Hemoglobin 25.6 pg (26-34); Mean Platelet Volume 8.9 fl (7.4-10.4); Platelet Count Result 326 k/mm3 (150-375); Red Blood Count 2.89 M/mm3 (4.2-5.4); White Blood Count 8.3 K/mm3 (4.5-10.0)
[2019-07-04 08:00] VITALS: BP 112/58; PULSE 90
[2019-07-04] MEDS: DOCUSATE SODIUM 100 MG CAPSULE PO (08:07)
[2019-07-04] MEDS: ASPIRIN 81 MG CHEWABLE TABLET PO (08:07)
[2019-07-04] MEDS: ISOSORBIDE MONONITRATE 30 MG TAB.ER.24H PO (08:07)
[2019-07-04] MEDS: SOTALOL HCL 80 MG TABLET PO ×2 (08:07→20:36)
[2019-07-04] MEDS: MULTIVITAMINS /C LUTEIN (CENTRUM SILVER) TABLET *BKC 1 TAB PO (08:07)
--- NOTE | 2019-07-04 08:58 | WPDGIPROGNO ---
Progress Note: A&P Assessment and Plan (1) ELSA (iron deficiency anemia): Code(s): D50.9 - Iron deficiency anemia, unspecified Status: Acute Assessment and Plan: gi evaluation essentially unremarkable, no obvious GI etiology for anemia, suspect non-GI etiology for anemia, consider decubitus ulcer as etiology iron replacement to continue follow hct after discharge (2) Decubitus ulcer: Code(s): L89.90 - Pressure ulcer of unspecified site, unspecified stage Status: Acute (3) Parkinson's disease: Code(s): G20 - Parkinson's disease Status: Acute Subjective Interval history: pt unchanged, no gi bleeding appreciaterd Exam Narrative: Exam Narrative: alert, bedridden, abdomen soft and nontender, decubitus ulcer persists SBFT negative Objective Data Vital Signs Vital Signs: Vital Signs - 24 hr 07/03/19 10:00 07/03/19 14:00 07/03/19 18:00 Temperature 36.1 C L 37.1 C 36.9 C Pulse Rate 88 112 H 122 H Respiratory Rate 18 16 16 Blood Pressure 140/77 126/72 122/78 Pulse Oximetry 100 100 100 07/03/19 20:23 07/03/19 22:00 07/03/19 22:50 Temperature 36.5 C Pulse Rate 122 H 86 86 Respiratory Rate 18 18 Blood Pressure 109/58 L Pulse Oximetry 99 99 07/04/19 06:00 Temperature 36.1 C L Pulse Rate 121 H Respiratory Rate 18 Blood Pressure 115/82 Pulse Oximetry 97 Intake/Output Intake/Output: Intake & Output 07/01/19 07/02/19 07/03/19 07/04/19 23:59 23:59 23:59 23:59 Intake Total 200 515 790 Balance 200 515 790 Meds/Results Medications: Active Medications Generic Name Dose Route Start Last Admin Trade Name Freq PRN Reason Stop Dose Admin Acetaminophen 650 mg 07/01/19 01:23 07/04/19 04:38 Tylenol Tablet PO 650 mg Q4H PRN Administration Mild Pain (1-3) or Fever Aspirin 81 mg 07/03/19 09:00 07/04/19 08:07 Aspirin Chewable PO 81 mg DAILY CASSIE Administration Docusate Sodium 100 mg 07/03/19 09:00 07/04/19 08:07 Colace Cap PO 100 mg DAILY CASSIE Administration Donepezil HCl 10 mg 07/02/19 21:00 07/03/19 20:23 Aricept PO 10 mg HS CASSIE Administration Famotidine 20 mg 07/02/19 21:00 07/03/19 20:23 Pepcid PO 08/01/19 21:01 20 mg HS CASSIE Administration Gabapentin 100 mg 07/02/19 21:00 07/03/19 20:23 Neurontin PO 100 mg HS CASSIE Administration Isosorbide Mononitrate 30 mg 07/03/19 09:00 07/04/19 08:07 Imdur PO 30 mg DAILY CASSIE Administration Multivitamins/Minerals 1 tab 07/03/19 09:00 07/04/19 08:07 Centrum Silver PO 1 tab QAM CASSIE Administration Ondansetron HCl 4 mg 07/01/19 01:23 Zofran Inj IV PUSH Q4H PRN Nausea Silver Nitrate 1 applic 07/01/19 09:00 07/03/19 05:37 Silvergel TOPICAL 1 applic Q72HR CASSIE Administration Simethicone 0.6 ml 07/02/19 14:54 07/02/19 14:54 Mylicon Infants Drops PO 0.6 ml ONCE PRN Administration Gas Discomfort Sotalol HCl 80 mg 07/02/19 21:00 07/04/19 08:07 Betapace PO 80 mg Q12HR CASSIE Administration Trimethoprim/Sulfamethoxazole 1 tab 07/03/19 09:00 07/04/19 08:07 Septra Ds PO 1 tab DAILY CASSIE Administration Radiology Results: ITS Impressions Abdomen X-Ray 07/01/19 18:35 IMPRESSION: 1: [NG tube tip in the stomach. Upper GI and Small Bowel X-Ray 07/03/19 16:30 IMPRESSION: 1: Limited study due to poor visualization of small bowel. No evidence for small bowel dilation to suggest obstruction. There is delayed gastric emptying. Labs Labs: Laboratory Results - last 24 hr 07/03/19 07/04/19 13:36 06:03 WBC 8.3 RBC 2.89 L Hgb 7.4 L Hct 24.0 L MCV 83.0 MCH 25.6 L MCHC 30.8 L RDW 15.0 H Plt Count 326 MPV 8.9 Creatinine 1.40 H Estim Creat Clear Calc 25 Estimated GFR 44 L
[2019-07-04 09:11] VITALS: BP 109/68; PULSE 118; RESP 14; TEMP 36.7; O2SAT 100
--- NOTE | 2019-07-04 11:53 | PM.IMPN ---
Progress Note: A&P Assessment and Plan (1) Anemia due to blood loss: Code(s): D50.0 - Iron deficiency anemia secondary to blood loss (chronic) Status: Acute Assessment and Plan: Adelaida Knox is a 79 year old female a resident of [place] was found unresponsive and patient had been complaining of being dizzy and room is moving, sent to the ER, patient is poor historian and unable to provide detail history or review of symptoms, patient family is present in the room, patient is found to have anemia and her stool hemmocult is positive, patient was seen by Dr. Olivera on 07/01, taken from previous notes. pt is having ongoing iron deficiency anaemia, I will order ct chest in the hospital and ct abdo hopeful saumya once barium is out. Tests done here egd, colonscopy and sbft have been negative. Anaemia is not related to GI tract. (2) Dementia: Code(s): F03.90 - Unspecified dementia without behavioral disturbance Status: Acute Assessment and Plan: Patient is at her baseline, poor historian (3) Diabetes: Code(s): E11.9 - Type 2 diabetes mellitus without complications Status: Acute Assessment and Plan: Will continue home regiment and monitor, started on diet, AC and HS (4) Parkinson's disease: Code(s): G20 - Parkinson's disease Status: Acute Assessment and Plan: Patient is clinically stable, will monitor (5) Ulcer: Status: Acute Assessment and Plan: Patient wounds were present upon arrival to ER from [place], patient will be seen by wound team, wound on tail bone Subjective Interval history: Pt unchanged, history from nephew by bedside. No gi bleeding, pt has dementia poor historian, ongoing iron deficiency anaemia, I will order ct chest in the hospital and ct abdo hopeful saumya once barium is out. Tests done here egd, colonscopy and sbft have been negative. Anaemia is not related to GI tract. Review of Systems Review of Systems: All systems reviewed & are unremarkable except as noted in HPI and below Constitutional: Comments: Pt has dementia, poor historian Exam Narrative: Exam Narrative: Patient is elderly frail Const: General: comfortable and no acute distress Other: Patient is elderly frail Resp: Effort & Inspection: normal respiratory effort Auscultation: clear to auscultation bilaterally Cardio: Rate: regular rate Rhythm: regular rhythm GI: Palpation (GI): Yes soft Auscultation: normal bowel sounds Extrem: General: normal to inspection Objective Data Vital Signs Vital Signs: Vital Signs - 24 hr 07/03/19 14:00 07/03/19 18:00 07/03/19 20:23 Temperature 37.1 C 36.9 C Pulse Rate 112 H 122 H 122 H Respiratory Rate 16 16 Blood Pressure 126/72 122/78 Pulse Oximetry 100 100 07/03/19 22:00 07/03/19 22:50 07/04/19 06:00 Temperature 36.5 C 36.1 C L Pulse Rate 86 86 121 H Respiratory Rate 18 18 18 Blood Pressure 109/58 L 115/82 Pulse Oximetry 99 99 97 07/04/19 08:00 07/04/19 09:11 Temperature 36.7 C Pulse Rate 90 118 H Respiratory Rate 14 Blood Pressure 112/58 L 109/68 Pulse Oximetry 100 Intake/Output Intake/Output: Intake & Output 07/01/19 07/02/19 07/03/19 07/04/19 23:59 23:59 23:59 23:59 Intake Total 200 515 790 360 Balance 200 515 790 360 Meds/Results Medications: Active Medications Generic Name Dose Route Start Last Admin Trade Name Freq PRN Reason Stop Dose Admin Acetaminophen 650 mg 07/01/19 01:23 07/04/19 04:38 Tylenol Tablet PO 650 mg Q4H PRN Administration Mild Pain (1-3) or Fever Aspirin 81 mg 07/03/19 09:00 07/04/19 08:07 Aspirin Chewable PO 81 mg DAILY CASSIE Administration Docusate Sodium 100 mg 07/03/19 09:00 07/04/19 08:07 Colace Cap PO 100 mg DAILY CASSIE Administration Donepezil HCl 10 mg 07/02/19 21:00 07/03/19 20:23 Aricept PO 10 mg HS CASSIE Administration Famotidine 20 mg 07/02/19 21:00 07/03/19 20:23 Pepcid PO 07/18
[2019-07-04 12:38] VITALS: BP 121/76; PULSE 116; RESP 16; TEMP 37; O2SAT 98
[2019-07-04 15:15] VITALS: BP 110/67; PULSE 98; RESP 14; TEMP 37; O2SAT 99
[2019-07-04] MEDS: GABAPENTIN 100 MG CAPSULE PO (20:36)
[2019-07-04] MEDS: FAMOTIDINE 20 MG TABLET PO (20:36)
[2019-07-04] MEDS: DONEPEZIL HCL 10 MG TABLET PO (20:36)
[2019-07-04 22:00] VITALS: BP 92/52; PULSE 118; RESP 14; TEMP 36.8; O2SAT 98
[2019-07-05] VITALS (13 sets, daily range): BP systolic 93–114; BP diastolic 57–73; PULSE 80–119; RESP 16–18; TEMP 35.9–36.5; O2SAT 97–100
[2019-07-05 07:27] LABS: Hematocrit 22.5 % (37.0-47.0); Mean Corpuscular HGB Conc 30.7 g/dl (32-36); Mean Corpuscular Hemoglobin 25.6 pg (26-34); Mean Corpuscular Volume 83.3 fl (80-100); Mean Platelet Volume 9.2 fl (7.4-10.4); Platelet Count Result 319 k/mm3 (150-375); Red Cell Distribution Width 15.3 % (11.5-14.5); White Blood Count 8.3 K/mm3 (4.5-10.0)
[2019-07-05 07:30] LABS: Hemoglobin 6.9 g/dL (12.0-15.0)
[2019-07-05 07:48] LABS: Blood Urea Nitrogen 13 mg/dL (7-17); Calcium 8.4 mg/dL (8.4-10.2); Carbon Dioxide 26 mmol/L (22-30); Chloride 111 mmol/L (98-107); Estimated CRCL calculation 23 ml/min; Estimated Glomerular Filt Rate 40; Glucose 108 mg/dL (65-105); Potassium 3.6 mmol/L (3.4-5.0); Sodium 142 mmol/L (137-145)
[2019-07-05] MEDS: SOTALOL HCL 80 MG TABLET PO ×2 (10:54→21:00)
[2019-07-05] MEDS: MULTIVITAMINS /C LUTEIN (CENTRUM SILVER) TABLET *BKC 1 TAB PO (10:54)
[2019-07-05] MEDS: DOCUSATE SODIUM 100 MG CAPSULE PO (10:55)
[2019-07-05] MEDS: ISOSORBIDE MONONITRATE 30 MG TAB.ER.24H PO (10:55)
[2019-07-05] MEDS: ASPIRIN 81 MG CHEWABLE TABLET PO (10:55)
[2019-07-05] MEDS: SODIUM CHLORIDE 0.9% IV 250 ML 30 ML IV CONT (15:04)
--- NOTE | 2019-07-05 17:42 | PHAR ---
pt info sheet sent with 1st epo dose
--- NOTE | 2019-07-05 20:31 | PM.IMPN ---
Progress Note: A&P Assessment and Plan (1) Anemia due to blood loss: Code(s): D50.0 - Iron deficiency anemia secondary to blood loss (chronic) Status: Acute Assessment and Plan: Adelaida Knox is a 79 year old female a resident of [place] was found unresponsive and patient had been complaining of being dizzy and room is moving, sent to the ER, patient is poor historian and unable to provide detail history or review of symptoms, patient family is present in the room, patient is found to have anemia and her stool hemmocult is positive, patient was seen by Dr. Olivera on 07/01, taken from previous notes. pt is having ongoing iron deficiency anaemia, I will order ct chest in the hospital and ct abdo hopeful saumya once barium is out. Tests done here egd, colonscopy and sbft have been negative. Anaemia is not related to GI trac plan was to order ct chest in the hospital and ct abdo however KUB showed barium still in the intestine, Tests done here egd, colonscopy and sbft have been negative. Anaemia is not related to GI tract. patient was seen by Dr. Hodge and ordered epogen and B12, (2) Dementia: Code(s): F03.90 - Unspecified dementia without behavioral disturbance Status: Acute Assessment and Plan: Patient is at her baseline, poor historian (3) Diabetes: Code(s): E11.9 - Type 2 diabetes mellitus without complications Status: Acute Assessment and Plan: Will continue home regiment and monitor, started on diet, AC and HS (4) Parkinson's disease: Code(s): G20 - Parkinson's disease Status: Acute Assessment and Plan: Patient is clinically stable, will monitor (5) Ulcer: Status: Acute Assessment and Plan: Patient wounds were present upon arrival to ER from [place], patient will be seen by wound team, wound on tail bone Subjective Interval history: Adelaida Knox is a 79 year old female a resident of [place] was found unresponsive and patient had been complaining of being dizzy and room is moving, sent to the ER, patient is poor historian and unable to provide detail history or review of symptoms, patient family is present in the room, patient is found to have anemia and her stool hemmocult is positive, patient was seen by Dr. Olivera on 07/01, taken from previous notes. pt is having ongoing iron deficiency anaemia, I will order ct chest in the hospital and ct abdo hopeful saumya once barium is out. Tests done here egd, colonscopy and sbft have been negative. Anaemia is not related to GI trac plan was to order ct chest in the hospital and ct abdo however KUB showed barium still in the intestine, Tests done here egd, colonscopy and sbft have been negative. Anaemia is not related to GI tract. patient was seen by Dr. Hodge and ordered epogen and B12, Review of Systems Review of Systems: All systems reviewed & are unremarkable except as noted in HPI and below Exam Narrative: Exam Narrative: Patient is elderly frail Const: General: comfortable and no acute distress Other: Patient is elderly frail HENMT: General nose exam: nares normal Mouth: Yes moist mucous membranes Other: Patient is elderly frail Eyes: General: appearance normal, both eyes and all related structures Neck: Neck: supple Resp: Effort & Inspection: normal respiratory effort Auscultation: clear to auscultation bilaterally Cardio: Rate: regular rate Rhythm: regular rhythm GI: Palpation (GI): Yes soft Auscultation: normal bowel sounds Extrem: General: normal to inspection Objective Data Vital Signs Vital Signs: Vital Signs - 24 hr 07/04/19 22:00 07/05/19 02:58 07/05/19 06:00 Temperature 98.2 F 97.4 F L 97.7 F Pulse Rate 118 H 113 H 110 H Respiratory Rate 14 16 16 Blood Pressure 92/52 L 114/59 L 95/62 L Pulse Oximetry 98 97 98 07/05/19 08:00 07/05/19 10:00 07/05/19 10:54 Temperature 97.3 F L Pulse Rate 103 H 115 H 92 Respiratory Rate 16 18 Blood Pressure 114/69 Pulse Oxi
[2019-07-05] MEDS: CYANOCOBALAMIN INJ 1,000 MCG/ML VIAL 1000 MCG IM (20:59)
[2019-07-05] MEDS: EPOETIN ALFA 20,000 UNITS/ML VIAL 20000 UNITS SUB-Q (20:59)
[2019-07-05] MEDS: GABAPENTIN 100 MG CAPSULE PO (21:00)
[2019-07-05] MEDS: DONEPEZIL HCL 10 MG TABLET PO (21:00)
[2019-07-05] MEDS: FAMOTIDINE 20 MG TABLET PO (21:00)
--- NOTE | 2019-07-05 23:34 | CONS_ITS ---
DATE OF CONSULTATION: 07/05/2019 REASON FOR CONSULTATION: Anemia. HISTORY OF PRESENTING ILLNESS: This is an 79-year-old [place] resident with history of Parkinson disease, brought into the hospital as she was found unresponsive and later she started complaining of dizziness and lightheadedness. She is a poor historian. She complained of tiredness and fatigue. She also complained of blood in the stool. Her Hemoccult stools were positive. She had a complete GI evaluation done by Dr. Olivera including EGD, colonoscopy, and a small-bowel follow-through came back unremarkable other than polyps and hemorrhoids. No GI etiology of her anemia was found. She has been eating well and denies any weight loss. REVIEW OF SYSTEMS: A 12-point review of system was reviewed and as per HPI, otherwise negative. PAST MEDICAL HISTORY: Atrial fibrillation, diabetes, depression, diverticulosis, endometriosis, esophageal stricture, GERD, hypertension, hyperlipidemia, mitral valve prolapse, Parkinson disease, chronic kidney disease, thyroid, and UTI. PAST SURGICAL HISTORY: Hysterectomy, nephrectomy, spinal surgery, tubal ligation, appendectomy, cardiac catheterization, and tonsillectomy. HOME MEDICATIONS: Reviewed. ALLERGIES: REVIEWED. FAMILY HISTORY: Positive for diabetes in siblings. SOCIAL HISTORY: The patient is a lifelong nonsmoker. Denies any alcohol use. The patient is a [place] resident. PHYSICAL EXAMINATION: GENERAL: This patient is an elderly female, who looks quite tired and fatigued. VITAL SIGNS: Per nursing note. HEENT: Normocephalic, atraumatic. Clear oropharynx. LUNGS: Clear to auscultation bilaterally. CARDIOVASCULAR: Regular rate and rhythm. No murmurs. ABDOMEN: Soft, nontender, nondistended. Bowel sounds are positive. No hepatosplenomegaly. EXTREMITIES: Mild edema. NEUROLOGIC: Grossly intact. LABORATORY DATA: Creatinine 1.5 with creatinine clearance of 23%. Iron less than 10. Iron saturation less than 4%, TIBC 233, ferritin 18.5, vitamin B12 of 497. WBC 8.3, hemoglobin 6.9, MCV 83.3, platelet count 319,000, neutrophils 70%, and lymphocytes 15.4%. ASSESSMENT AND PLAN: Normocytic anemia in an 79-year-old female with history of Parkinson disease and multiple other comorbidities. She had an extensive GI evaluation done including colonoscopy that showed hemorrhoids, colon polyps, and diverticulosis. She also had EGD and small bowel series done that came back unremarkable for any source of gastrointestinal bleed. Her anemia is likely multifactorial with anemia of chronic kidney disease with poor kidney function as well as possibility of bone marrow disorder like myelodysplastic syndrome. There is still a possibility of occult gastrointestinal bleed with iron deficiency. Her vitamin B12 level is also in the middle range of normal. At this point, I will start her on Procrit injection 20,000 units on a biweekly basis along with vitamin B12 replacement. The patient has already received iron infusion with Venofer. She may need a bone marrow biopsy for completion of workup, but she seems like not a good candidate for bone marrow biopsy at this point. In the meantime, I will continue with the above plan and continue with blood transfusion as needed. We will consider doing a bone marrow biopsy once she is more stable. I have answered all the questions to the patient's satisfaction. D I MT: Kale
[2019-07-06] VITALS (10 sets, daily range): BP systolic 91–134; BP diastolic 59–75; PULSE 75–116; RESP 14–20; TEMP 35.9–36.8; O2SAT 89–100
[2019-07-06 07:08] LABS: Hematocrit 26.5 % (37.0-47.0); Hemoglobin 8.3 g/dL (12.0-15.0); Mean Corpuscular HGB Conc 31.3 g/dl (32-36); Mean Corpuscular Volume 86.3 fl (80-100); Mean Platelet Volume 9.3 fl (7.4-10.4); Platelet Count Result 311 k/mm3 (150-375); Red Blood Count 3.07 M/mm3 (4.2-5.4); Red Cell Distribution Width 15.2 % (11.5-14.5); White Blood Count 7.7 K/mm3 (4.5-10.0)
[2019-07-06 07:20] LABS: Blood Urea Nitrogen 14 mg/dL (7-17); Calcium 8.6 mg/dL (8.4-10.2); Carbon Dioxide 26 mmol/L (22-30); Chloride 112 mmol/L (98-107); Estimated CRCL calculation 23 ml/min; Estimated Glomerular Filt Rate 40; Glucose 95 mg/dL (65-105); Potassium 3.8 mmol/L (3.4-5.0); Sodium 143 mmol/L (137-145)
[2019-07-06] MEDS: DOCUSATE SODIUM 100 MG CAPSULE PO (09:51)
[2019-07-06] MEDS: ASPIRIN 81 MG CHEWABLE TABLET PO (09:51)
[2019-07-06] MEDS: MULTIVITAMINS /C LUTEIN (CENTRUM SILVER) TABLET *BKC 1 TAB PO (09:52)
[2019-07-06] MEDS: ISOSORBIDE MONONITRATE 30 MG TAB.ER.24H PO (09:52)
[2019-07-06] MEDS: SOTALOL HCL 80 MG TABLET PO ×2 (09:52→20:27)
--- NOTE | 2019-07-06 13:34 | PCDIET ---
Nutrition Follow-Up Complete: Inadequate oral intake R/T reduced appetite as evidence by wt loss of 24-33lbs PO intake of meals and supplements at 75% or greater Goal: Progressing towards goal. Continue with current goal. Pt current nutrition is heart healthy. Nutrition recommendation: Agree Last recorded weight is 69 kg. Bowel Motility: 07/05 Labs Reviewed: Hgb 8.3, Hct 26.5 Meds Noted: Colace, MTV Additional Notes: Pt average intake is 63%. Pt appears well nourished. Allen added BID to aid in wound healing of sacral decubitis ulcer. Allen is a low kcal, low CHO beverage that aids in wound healing. It provides 80 kcals, 7.9 CHO, and 7 g of both L-Arginine and L-glutamine per serving. We will continue to monitor po intake, diet, skin, labs every five days.
--- NOTE | 2019-07-06 16:05 | PM.IMPN ---
Progress Note: A&P Assessment and Plan (1) Anemia due to blood loss: Code(s): D50.0 - Iron deficiency anemia secondary to blood loss (chronic) Status: Acute Assessment and Plan: Adelaida Knox is a 79 year old female a resident of [place] was found unresponsive and patient had been complaining of being dizzy and room is moving, sent to the ER, patient is poor historian and unable to provide detail history or review of symptoms, patient family is present in the room, patient is found to have anemia and her stool hemmocult is positive, patient was seen by Dr. Olivera on 07/01, pt is having ongoing iron deficiency anaemia, I will order ct chest in the hospital and ct abdo hopeful saumya once barium is out. Tests done here egd, colonscopy and sbft have been negative. Anaemia is not related to GI trac plan was to order ct chest in the hospital and ct abdo however KUB showed barium still in the intestine, Tests done here egd, colonscopy and sbft have been negative. Anaemia is not related to GI tract. patient was seen by Dr. Hodge and ordered epogen and B12, taken from previous notes.pt hopefully to be discharged tomorrow (2) Dementia: Code(s): F03.90 - Unspecified dementia without behavioral disturbance Status: Acute Assessment and Plan: Patient is at her baseline, poor historian (3) Diabetes: Code(s): E11.9 - Type 2 diabetes mellitus without complications Status: Acute Assessment and Plan: Will continue home regiment and monitor, started on diet, AC and HS (4) Parkinson's disease: Code(s): G20 - Parkinson's disease Status: Acute Assessment and Plan: Patient is clinically stable, will monitor (5) Ulcer: Status: Acute Assessment and Plan: Patient wounds were present upon arrival to ER from [place], patient will be seen by wound team, wound on tail bone Subjective Interval history: Pt unchanged, history from nephew by bedside. 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 Tests done here egd, colonscopy and sbft have been negative. Anaemia is not related to GI tract.Dr Hodge consulted, hopeful dischrage tomorrow Review of Systems Review of Systems: All systems reviewed & are unremarkable except as noted in HPI and below Exam Narrative: Exam Narrative: Patient is elderly frail Const: General: comfortable and no acute distress Other: Patient is elderly frail HENMT: General nose exam: nares normal Mouth: Yes moist mucous membranes Other: Patient is elderly frail Eyes: General: appearance normal, both eyes and all related structures Neck: Neck: supple Resp: Effort & Inspection: normal respiratory effort Auscultation: clear to auscultation bilaterally Cardio: Rate: regular rate Rhythm: regular rhythm GI: Palpation (GI): Yes soft Auscultation: normal bowel sounds Extrem: General: normal to inspection Objective Data Vital Signs Vital Signs: Vital Signs - 24 hr 07/05/19 16:19 07/05/19 17:19 07/05/19 19:30 Temperature 36.0 C L 35.9 C L Pulse Rate 117 H 97 80 Respiratory Rate 16 16 16 Blood Pressure 101/73 96/58 L Pulse Oximetry 100 100 100 07/05/19 21:00 07/05/19 22:00 07/06/19 02:00 Temperature 36.4 C 36.1 C L Pulse Rate 80 91 91 Respiratory Rate 16 20 Blood Pressure 112/70 91/59 L Pulse Oximetry 99 94 L 07/06/19 06:00 07/06/19 08:00 07/06/19 09:52 Temperature 35.9 C L Pulse Rate 105 H 100 100 Respiratory Rate 16 16 Blood Pressure 121/74 Pulse Oximetry 97 97 07/06/19 10:00 07/06/19 14:00 Temperature 36.4 C 36.8 C Pulse Rate 116 H 86 Respiratory Rate 14 16 Blood Pressure 123/71 134/73 Pulse Oximetry 100 100 Intake/Output Intake/Output: Intake & Output 07/03/19 07/04/19 07/05/19 07/06/19 23:59 23:59 23:59 23:59 Intake Total 790 1380 950 700 Balance 790 1380 950
--- NOTE | 2019-07-06 18:21 | WPDONCPN ---
Progress Note: A/P - Additional Plan Multifactorial anemia. Likely secondary to vitamin B12 deficiency and anemia of chronic kidney disease. Patient has started B12 injection and Procrit 52976 units on a biweekly basis. I will follow up in the office in 2 weeks to continue Procrit injection upon discharge. No need for bone marrow biopsy testing at this time. GI evaluation previously was unrevealing. Decubitus ulcer. Wound care nurses have been seeing patient. - Time Spent With Patient Total time spent is greater than 50% in coordination of care (as documented) at patient's floor/unit and/or counseling patient: less than 15 minutes (Time spent 15 minutes.) Subjective Interval history: Multifactorial anemia. Decubitus ulcer Chronic kidney disease Review of Systems - Review of Systems Patient looks much more awake and alert today. Denies any fevers and chills. Denies any bleeding and bruising. Exam Vital signs: Temp Pulse Resp BP Pulse Ox 36.8 C 86 16 134/73 100 07/06/19 14:00 07/06/19 14:00 07/06/19 14:00 07/06/19 14:00 07/06/19 14:00 Narrative: Lungs are clear to auscultation bilaterally Cardiovascular regular rate rhythm no murmurs Abdomen soft nontender nondistended Extremities no edema PN: Objective Data - Labs CBC & Chem 7: 07/06/19 06:32 07/06/19 06:32 Labs: Laboratory Results - last 24 hr 07/05/19 07/06/19 07/06/19 10:04 06:32 06:32 WBC 7.7 RBC 3.07 L Hgb 8.3 L Hct 26.5 L MCV 86.3 MCH 27.0 D MCHC 31.3 L RDW 15.2 H Plt Count 311 MPV 9.3 Sodium 143 Potassium 3.8 Chloride 112 H Carbon Dioxide 26 BUN 14 Creatinine 1.50 H Estim Creat Clear Calc 23 Estimated GFR 40 L Glucose 95 Calcium 8.6 Crossmatch See Detail
[2019-07-06] MEDS: FAMOTIDINE 20 MG TABLET PO (20:27)
[2019-07-06] MEDS: DONEPEZIL HCL 10 MG TABLET PO (20:27)
[2019-07-06] MEDS: GABAPENTIN 100 MG CAPSULE PO (20:27)
[2019-07-07 02:00] VITALS: BP 112/61; PULSE 73; RESP 16; TEMP 36.3; O2SAT 97
[2019-07-07 05:52] VITALS: BP 97/72; PULSE 74; RESP 16; TEMP 36.6; O2SAT 96
[2019-07-07] MEDS: ASPIRIN 81 MG CHEWABLE TABLET PO (09:30)
[2019-07-07] MEDS: SOTALOL HCL 80 MG TABLET PO (09:30)
[2019-07-07] MEDS: MULTIVITAMINS /C LUTEIN (CENTRUM SILVER) TABLET *BKC 1 TAB PO (09:30)
[2019-07-07] MEDS: DOCUSATE SODIUM 100 MG CAPSULE PO (09:30)
[2019-07-07] MEDS: ISOSORBIDE MONONITRATE 30 MG TAB.ER.24H PO (09:30)
[2019-07-07] MEDS: SILVERGEL (ELTA) 45 ML 1 APPLIC TOPICAL (09:31)
[2019-07-07 10:00] VITALS: BP 135/77; PULSE 81; RESP 18; TEMP 35.9; O2SAT 97
[2019-07-07 14:00] VITALS: BP 120/71; PULSE 90; RESP 16; TEMP 36.2; O2SAT 100
--- NOTE | 2019-07-07 14:43 | PM.DS ---
DS: Diagnosis Admitting Diagnosis Admitting Diagnosis: Iron deficiency anemia secondary to blood loss (chronic) Discharge Diagnosis (1) Anemia due to blood loss: Code(s): D50.0 - Iron deficiency anemia secondary to blood loss (chronic) Status: Acute Assessment and Plan: Adelaida Knox is a 79 year old female a resident of [place] was found unresponsive and patient had been complaining of being dizzy and room is moving, sent to the ER, patient is poor historian and unable to provide detail history or review of symptoms, patient family is present in the room, patient is found to have anemia and her stool hemocult is positive, patient was seen by Dr. 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 Tests done here egd, colonscopy and sbft have been negative. Anaemia is not related to GI tract. patient was seen by Dr. Hogde and ordered epogen and B12, started on procit on discharge. Pt to follow in his office with Procit injection. Pt to have Ct abdomen and pelvis later in Dr Hodge clinic. (2) Dementia: Code(s): F03.90 - Unspecified dementia without behavioral disturbance Status: Acute Assessment and Plan: Patient is at her baseline, poor historian, POA in the room on day of discharge updated on her condition, POA deciding on SNF placement. (3) Diabetes: Code(s): E11.9 - Type 2 diabetes mellitus without complications Status: Acute Assessment and Plan: Will continue home regimen (4) Parkinson's disease: Code(s): G20 - Parkinson's disease Status: Acute Assessment and Plan: Patient is clinically stable, will monitor (5) Decubitus ulcer: Code(s): L89.90 - Pressure ulcer of unspecified site, unspecified stage Status: Acute Assessment and Plan: STage pressure ulcer to the medial coocyx continue silver gelto the wound bed for topical antimicrobial coverage, dry gauze and ABD pad DS: Summary Time Spent with Patient Time attestation: Total time spent providing and/or coordinating discharge services:40 minutes on day of discharge Exam Narrative: Exam Narrative: Patient is elderly frail Const: General: comfortable and no acute distress Other: Patient is elderly frail HENMT: General nose exam: nares normal Mouth: Yes moist mucous membranes Other: Patient is elderly frail Resp: Effort & Inspection: normal respiratory effort Auscultation: clear to auscultation bilaterally Cardio: Rate: regular rate Rhythm: regular rhythm GI: Palpation (GI): Yes soft Auscultation: normal bowel sounds Back/Spine/Pelvis: Other: Satge 4 pressure ulcer to the medial coccyx Extrem: General: normal to inspection DS: Data Data Completed and Pending Completed studies during hospitalization: Pending at discharge 07/02/19 14:56 Surgical [PTH] Routine Discharge Plan Discharge Attending physician on discharge: Cindy Avila Consulting providers: Keith Olivera ; Tahir Hodge Discharging Clinician: Cindy Avila Anticipated Discharge Date/Time: 07/07/19 17:00 Patient Disposition: SNF Activity: as tolerated Diet: heart healthy Wound Care Instructions: follow printed instructions Patient Instructions: Gastrointestinal Bleeding (DC), Pressure Ulcer (DC) Stand Alone Forms: General Discharge Information Follow-up/Referrals: Tahir Hodge MD [Physician] - 2 Weeks (Follow-up with Dr. Hodge in 2 weeks for continuation of Procrit injection. Pt may benefit from CT abdomen later ) Discharge Medications: New Silver-Sept 200 mcg/gram Gel 1 applic topical Q72HR 30 Days RF: 0 Continued sotalol 80 mg Tablet 80 mg PO BID RF: 0 donepezil [Aricept] 10 mg Tablet 10 mg PO HS RF: 0 isosorbide mononitrate 30 mg Tablet Extended Release 24 Hr
== END 2019-07-07 18:45 | DRG 987 ==
LOC: ANHED 21:05 → ANH2MED 07-01 01:32
PROVIDERS: Family Medicine; Internal Medicine Gastroenterology; Admitting Provider Family Medicine; Emergency Provider Emergency Medicine; Visit Provider Family Medicine
PROC: 0DJ08ZZ Inspection of Upper Intestinal Tract, Via Natural or Artificial Opening Endoscopic (ICD-10-PCS; CPT 43235; principal; 2019-07-02 14:00)
DX: D50.0 Iron deficiency anemia secondary to blood loss (chronic) (principal); L89.154 Pressure ulcer of sacral region, stage 4; I13.0 Hypertensive heart and chronic kidney disease with heart failure and stage 1 through stage 4 chronic kidney disease, or unspecified chronic kidney disease; D63.1 Anemia in chronic kidney disease; N18.9 Chronic kidney disease, unspecified; E53.8 Deficiency of other specified B group vitamins; D12.2 Benign neoplasm of ascending colon; K57.30 Diverticulosis of large intestine without perforation or abscess without bleeding; K64.8 Other hemorrhoids; D12.5 Benign neoplasm of sigmoid colon; R19.5 Other fecal abnormalities; I50.9 Heart failure, unspecified; E11.22 Type 2 diabetes mellitus with diabetic chronic kidney disease; F03.90 Unspecified dementia, unspecified severity, without behavioral disturbance, psychotic disturbance, mood disturbance, and anxiety; G20 Parkinson's disease; K21.9 Gastro-esophageal reflux disease without esophagitis; E78.5 Hyperlipidemia, unspecified; M19.90 Unspecified osteoarthritis, unspecified site; F41.8 Other specified anxiety disorders; Z79.82 Long term (current) use of aspirin
CPT/HCPCS: 36415; 36430; 71250; 74018; 74250; 80048; 81001; 82565; 82607; 82728; 82746; 83540; 83550; 83735; 85014; 85018; 85025; 85027; 86850; 86900; 86901; 86920; 87081; 88305; 93005; 96361; 96365; 96366; 96374; 96375; 99285; A9270; C9113; G0378; J1756; J2704; J3420; J7030; J7050; J7120; P9016; Q4081